=== PATIENT | female | born 1955 | race Caucasian/White ===

== ENCOUNTER 2017-12-06 22:54 | Emergency (ER) | payer MEDICAID ==
[2017-12-06 22:54] VITALS: BMI 24.8
[2017-12-06] MEDS ORDERED: Albuterol-Ipratrop 3 mg / 0.5 (3 ml) UD INH STA (23:14)
[2017-12-06] MEDS ORDERED: Albuterol-Ipratrop 3 mg / 0.5 (3 ml) UD ONE (23:14)
--- NOTE | 2017-12-07 00:02 | C.PDOC ---
History Of Present Illness Patient presents today with complaints of shortness of breath and wheezing, worsening over the past 3 weeks. She reports taking nebulizer treatments at home with no relief of symptoms. She is speaking in full sentences. Patient denies any fever, chills, nausea or vomiting. Time Seen by Provider: 12/07/17 00:01 Chief Complaint (Nursing): Respiratory Distress History Per: Patient History/Exam Limitations: no limitations Onset/Duration Of Symptoms: Persistent Current Symptoms Are (Timing): Still Present Past Medical History Reviewed: Historical Data, Nursing Documentation, Vital Signs Vital Signs: Last Vital Signs Temp 98.3 F 12/06/17 23:09 Pulse 116 H 12/06/17 23:09 Resp 18 12/06/17 23:36 BP 190/102 H 12/06/17 23:09 Pulse Ox 97 12/07/17 01:10 - Medical History PMH: Anemia (thalassemias), Anxiety, Asthma (hospitalized 4 yrs ago), HTN, Hypercholesterolemia, Hypothyroidism, Osteoporosis Denies: Chronic Kidney Disease Surgical History: Endoscopy - [facility] Procedures EXC LES SOFT TISSUE NEC (12/06/14) RADICAL EXCIS SKIN LES (10/09/14) Family History: States: No Known Family Hx - Social History Hx Tobacco Use: No Hx Alcohol Use: Yes Hx Substance Use: No - Immunization History Hx Tetanus Toxoid Vaccination: No Hx Influenza Vaccination: Yes Hx Pneumococcal Vaccination: No Review Of Systems Constitutional: Negative for: Fever, Chills Respiratory: Positive for: Shortness of Breath, Wheezing Gastrointestinal: Negative for: Nausea, Vomiting Physical Exam - Physical Exam Appears: Non-toxic Skin: Warm, Dry Head: Normacephalic Eye(s): bilateral: Normal Inspection Oral Mucosa: Moist Chest: Symmetrical Cardiovascular: Rhythm Regular Respiratory: Wheezing (throughout lungs), Other (initial peak flow 60 due to poor effort) Neurological/Psych: Oriented x3, Normal Speech, Normal Cognition ED Course And Treatment - Laboratory Results Result Diagrams: 12/07/17 00:29 12/07/17 00:29 O2 Sat by Pulse Oximetry: 97 (RA) Pulse Ox Interpretation: Normal - Radiology CXR: Interpreted by Me, Viewed By Me CXR Interpretation: No: Infiltrates, Fracture, Pnemothorax Reevaluation Time: 01:09 Reassessment Condition: Improved Critical Care Time - Critical Care Note Total Time (in mins): 30 Documented critical care: time excludes all time spent performing seperately billable procedures. Disposition Counseled Patient/Family Regarding: Studies Performed, Diagnosis, Need For Followup, Rx Given - Disposition Referrals: Davin Otero, [facility], HOSPICE NURSE PRACTITIONER [Primary Care Provider] - Disposition: HOME/ ROUTINE Disposition Time: 00:02 Condition: FAIR Additional Instructions: Please return if symptoms recur Prescriptions: Albuterol/Ipratropium [Duoneb 3 MG/3 Ml-0.5 MG/3 Ml 3 Ml] 3 ml IH QID PRN #50 neb PRN Reason: Wheezing Prednisone [Deltasone] 20 mg PO DAILY #5 tablet Instructions: Asthma (DC), Wheezing (ED) Forms: dVisit ([facility]) - Clinical Impression Clinical Impression: Exacerbation of asthma - Scribe Statement The provider has reviewed the documentation as recorded by the Scribe (Laura Schafer) Provider Attestation: All medical record entries made by the Scribe were at my direction and personally dictated by me. I have reviewed the chart and agree that the record accurately reflects my personal performance of the history, physical exam, medical decision making, and the department course for this patient. I have also personally directed, reviewed, and agree with the discharge instructions and disposition.
[2017-12-07] MEDS: Albuterol-Ipratrop 3 mg / 0.5 (3 ml) UD IH SCH ×3 (00:23→00:59)
[2017-12-07] MEDS ORDERED: Albuterol-Ipratrop 3 mg / 0.5 (3 ml) UD ONE (00:26)
[2017-12-07 00:33] LABS: BASO # 0.1 K/uL (0.0-0.2); BASO % 0.9 % (0.0-2.0); EOS % 0.7 % (0.0-4.0); HEMOGLOBIN 11.4 g/dL (11.0-16.0); LYMPH # 1.1 K/uL (1.0-4.3); LYMPH % 17.6 % (20.0-40.0); MEAN CELL VOLUME 63.2 fL (81.0-99.0); MEAN CORPUSCULAR HEMOGLOBIN 20.3 pg (27.0-31.0); MEAN CORPUSCULAR HGB CONC 32.2 g/dL (33.0-37.0); MEAN PLATELET VOLUME 9.4 fL (7.2-11.7); MONO # 0.1 K/uL (0.0-0.8); MONO % 2.2 % (0.0-10.0); NEUT # 4.7 K/uL (1.8-7.0); NEUT % 78.6 % (50.0-75.0); NRBC % 0.2 % (0.0-2.0); RBC 5.61 Mil/uL (3.80-5.20); RED CELL DISTRIBUTION WIDTH 15.7 % (11.5-14.5)
[2017-12-07 00:52] LABS: ALB/GLOB RATIO 1.4 (1.0-2.1); ALBUMIN 4.3 g/dL (3.5-5.0); ALT/SGPT 31 U/L (9-52); AST/SGOT 23 U/L (14-36); BLOOD UREA NITROGEN 21 mg/dL (7-17); CALCIUM 10.1 mg/dl (8.6-10.4); GFR AFRICAN-AMERICAN > 60; GFR NON-AFRICAN AMERICAN > 60
[2017-12-07 01:23] VITALS: BP 148/67; PULSE 83; RESP 17; TEMP 97.1; O2SAT 99
--- NOTE | 2017-12-07 09:21 | RAD ---
Chest x-ray single frontal view History: Shortness of breath. Comparison: 04/20/2015 Findings: No focal infiltrate or effusion. Small nodular density at the right lung base may represent small nodule and or granuloma versus small vessel on end. Clinical correlation. Correlation with follow-up study may helpful if clinically indicated. Heart size within normal limits. Degenerative changes in the spine. Impression: Small nodular density at the right lung base may represent small nodule and or granuloma versus small vessel on end. Clinical correlation. Correlation with follow-up study may helpful if clinically indicated.
== END 2017-12-07 01:30 | disposition home or self-care (01) ==
LOC: C.ER 22:54 → SUPCPDRO 22:54 → C.ER 12-07 01:30
DX: J45.901 Unspecified asthma with (acute) exacerbation (principal)
CPT/HCPCS: 71045; 80053; 85025; 87804; 94150; 96374; 99283; J2930